=== PATIENT | male | born 1965 | race Caucasian/White ===

== ENCOUNTER 2019-05-14 06:53 | Inpatient (IN) ==
--- NOTE | 2019-05-14 07:18 | ERNOTE ---
<Glenda Salinas - Last Filed: 05/14/19 08:00> Abdominal HPI - Narrative Date of Service: 05/14/19 - General Chief Complaint: Abdominal Pain Time Seen by Provider: 05/14/19 07:27 Source: patient Exam Limitations: no limitations - Immun/Allergies/Home Medications Immunizatons: IMMUNIZATION HX Immunizations Up to Date Yes History of Influenza Vaccine No Hx Pneumococcal Vaccination No Allergies/Adverse Reactions: Allergies indomethacin Allergy (Severe, Verified 05/14/19 07:00) seasonal Allergy (Uncoded 05/14/19 07:00) Home Medications: HOME MEDICATIONS naproxen sodium 220 mg tablet 220 mg PO DAILY PRN tab 04/16/18 [Last Taken Unknown] triamcinolone acetonide 0.1 % topical cream 1 applic TP BID #80 g 10/20/18 [Last Taken Unknown] cyclobenzaprine 10 mg tablet 10 mg PO TID #90 tab 03/30/19 [Last Taken Unknown] hydrocodone 10 mg-acetaminophen 325 mg tablet 1 tab PO Q6H PRN #90 tab 03/30/19 [Last Taken Unknown] lansoprazole 30 mg capsule,delayed release 30 mg PO BID #180 cap 03/30/19 [Last Taken Unknown] tamsulosin 0.4 mg capsule 0.4 mg PO DAILY #90 cap 03/30/19 [Last Taken Unknown] Lisinopril [Zestril] 10 mg PO DAILY 05/14/19 [Last Taken Unknown] - History of Present Illness Narrative: Patient comes emergency room for nausea, vomiting, dry heaves, bright red blood per rectum last night and abdominal pain. He has known peptic ulcer disease, has taken PPI for years. He had colonoscopy less than 2 years ago, states that was normal and was told he could return in 10 years. 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 He states he had large amount of bright red blood. Since then he is vomited 4 times, has not passed any additional blood and has had dry heaves all night. He states he will commonly have dark red or tarry stools if he drinks too much which he believes is from his peptic ulcer disease. He has not had bright red blood in the past. He retains his gallbladder and his appendix. 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 tennis elbow (Chronic) BPH loc w urin obs/LUTS (Chronic) Obstructive sleep apnea (adult) (pediatric) (Chronic) Osteoarthritis (Chronic) Onset Date: Unknown Obstructive sleep apnea (adult) (pediatric) (Chronic) Onset Date: ~04/10/15 Obesity (Chronic) Onset Date: ~10/04/13 GERD (gastroesophageal reflux disease) (Chronic) Onset Date: Unknown Duodenal ulcer disease (Chronic) Onset Date: ~10/05/17 DDD (degenerative disc disease) (Chronic) Onset Date: Unknown Influenza vaccine refused Onset Date: ~04/16/18 Refused influenza vaccine Onset Date: ~03/05/18 Sinusitis, acute Onset Date: ~03/01/12 Surgical History: Surgical History (Last Reviewed 05/14/19 @ 07:30 by Glenda Salinas MD) H/O esophagogastroduodenoscopy Onset Date: ~07/10/17 07/10/2017-EGD with balloon dilation of esophagus, hiatal hernia Dr Rocio PÉREZ History of colonoscopy Dr. Jessica - also had external hemorrhoids 07/10/2017- Dr Rocio PÉREZ colonoscopy with hot biopsy of polyps sigmoid and rectum Dr. Puentes- [facility] on 07/2017 Family History: Family History (Last Reviewed 05/14/19 @ 07:30 by Glenda Salinas MD) Mother Lung cancer Father Brain cancer Brother lymph node issues Social History: (Last Reviewed 05/14/19 @ 07:30 by Glenda Salinas MD) Social History: Marital status: household members: spouse Service: No Tobacco: Smoking Status: Former smoker Alcohol: alcohol intake: current Substance Use: substance use type: does not use Dietary Habits: caffeine: Yes Physical Exam - Physical Exam General Appearance: Present: wd/wn, alert, mild distress Head Exam: Present: normal inspection, no evidence of injury Eye Exam: Normal inspection: bilateral, PERRL: bilateral, EOMI: bilateral Ears, Nose, Throat: Present: normal ENT inspection Neck: Present: normal inspection, nontender Respiratory: Present: no respiratory distress, normal breath sounds Cardiovascular/Chest: Present: regular rate, rhythm Gastrointestinal/Abdominal: Present: other - Abdomen is soft, slightly distended with the patient states is typically the case. Bowel sounds are present. He reports pain in the epigastrium which is worse with palpation. There is also pain present in the right upper quadrant. There is no rebound guarding or signs of peritonitis. Progress - Vital Signs Patient's Vital Signs:: I have reviewed the patient's vital signs. Vital Signs: Vital Signs 05/14/19 06:54 Temperature 36.5 C Pulse Rate 75 Respiratory Rate 16 Blood Pressure 125/82 O2 Sat by Pulse Oximetry 97 - Progress/Reassessment Chief Complaint: Abdominal Pain Progress Note-Subjective: 05/14/19 07:34 IV fluids and Zofran have been ordered, patient's case is discussed with oncoming physician at 8 AM. Labs, CT scan pending. Patient stable. - Transfer of Care Physician Sign Out: Glenda Salinas Receiving Physician: David Parra Pending Results: CT/MRI results, Labs Expected Disposition: Discharge Departure Clinical Impression: Abdominal pain, Vomiting, Blood in stool, Fever, Abnormal CT of the abdomen - Departure Disposition: Still a patient Condition: Fair Referrals: Bryce Montes MD [Primary Care Provider] - <David Parra - Last Filed: 05/14/19 10:25> Abdominal HPI - Immun/Allergies/Home Medications Immunizatons: IMMUNIZATION HX Immunizations Up to Date Yes History of Influenza Vaccine No Hx Pneumococcal Vaccination No Medical History (Last Reviewed 05/14/19 @ 07:30 by Glenda Salinas MD) Folliculitis (Acute) Just to right of center in the beltline in front 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 Left tennis elbow (Chronic) BPH loc w urin obs/LUTS (Chronic) Obstructive sleep apnea (adult) (pediatric) (Chronic) Osteoarthritis (Chronic) Onset Date: Unknown Obstructive sleep apnea (adult) (pediatric) (Chronic) Onset Date: ~04/10/15 Obesity (Chronic) Onset Date: ~10/04/13 GERD (gastroesophageal reflux disease) (Chronic) Onset Date: Unknown Duodenal ulcer disease (Chronic) Onset Date: ~10/05/17 DDD (degenerative disc disease) (Chronic) Onset Date: Unknown Influenza vaccine refused Onset Date: ~04/16/18 Refused influenza vaccine Onset Date: ~03/05/18 Sinusitis, acute Onset Date: ~03/01/12 Surgical History: Surgical History (Last Reviewed 05/14/19 @ 07:30 by Glenda Salinas MD) H/O esophagogastroduodenoscopy Onset Date: ~07/10/17 07/10/2017-EGD with balloon dilation of esophagus, hiatal hernia Dr Rocio PÉREZ History of colonoscopy Dr. Jessica - also had external hemorrhoids 07/10/2017- Dr Rocio PÉREZ colonoscopy with hot biopsy of polyps sigmoid and rectum Dr. Puentes- [facility] on 07/2017 Family History: Family History (Last Reviewed 05/14/19 @ 07:30 by Glenda Salinas MD) Mother Lung cancer Father Brain cancer Brother lymph node issues Social History: (Last Reviewed 05/14/19 @ 07:30 by Glenda Salinas MD) Social History: Marital status: household members: spouse Service: No Tobacco: Smoking Status: Former smoker Alcohol: alcohol intake: current Substance Use: substance use type: does not use Dietary Habits: caffeine: Yes Progress - Results and Orders Patient's Lab Results:: I have reviewed the patient's lab results. - Vital Signs Patient's Vital Signs:: I have reviewed the patient's vital signs. Vital Signs: Vital Signs 05/14/19 06:54 05/14/19 07:31 05/14/19 08:16 Temperature 36.5 C Pulse Rate 75 96 91 Respiratory Rate 16 17 27 H Blood Pressure 125/82 107/60 126/72 O2 Sat by Pulse Oximetry 97 96 92 L 05/14/19 09:17 Temperature 38.7 C H Pulse Rate 91 Respiratory Rate 23 H Blood Pressure 119/63 O2 Sat by Pulse Oximetry 90 L - CT/Ultrasound CT/Ultrasound Narrative: I reviewed official radiology report for CT scan abd/pelvis ordered by Dr Salinas - Progress/Reassessment Progress Note-Subjective: 05/14/19 10:23 Patient taken over at am shift change. IV tylenol given. Reviewed CT and discussed results with patient. D/W Dr Boo who saw the patient in the ED. D/W Dr Hernandez who will admit and requested IV Zosyn (given in ED). Patient understands and is agreeable to admission. Please see Dr Salinas note for full H&P.
[2019-05-14] MEDS ORDERED: ONDANSETRON HCL/PF 2 MG/ML VIAL IV ONE ×2 (07:23→08:48)
[2019-05-14] MEDS ORDERED: NORMAL SALINE 1,000 ML IV ONE ×2 (07:25→09:00)
[2019-05-14] MEDS ORDERED: DIATRIZOATE MEGLUMINE, SODIUM 30 ML BTL PO ONE (07:26)
[2019-05-14] MEDS ORDERED: MORPHINE SULFATE 4 MG/ML SYRG IV ONE (07:36)
[2019-05-14] MEDS ORDERED: MORPHINE SULFATE 2 MG/ML DISP.SYRIN ONE (07:37)
[2019-05-14 07:39] LABS: Hematocrit 46.4 % (42.0-52.0); Hemoglobin 16.4 gm/dL (13.5-18.0); Mean Cell Volume 90.8 fl (78-100); Mean Corpuscular Hemoglobin 32.1 pg (27-31); Mean Corpuscular Hgb Conc 35.3 g/dl (32-36); Mean Platelet Volume 9.9 fl (8-11.3); Neutrophil # 6.9 K/mm3 (1.3-6.0); Neutrophil % 90.6 % (42-75.0); Platelet Count 185 K/mm3 (150-450); Red Blood Count 5.11 M/mm3 (4.7-6.0); Red Cell Distribution Width 12.6 % (11.5-14.0); White Blood Count 7.6 K/mm3 (4.0-10.5)
[2019-05-14 07:51] LABS: Albumin * 3.8 gm/dl (3.4-5.0); Anion Gap 13.5 mmol/L (6.8-13.8); BUN/Creatinine Ratio 18.3 (9.0-21.6); Bilirubin, Total 1.8 mg/dL (0.0-1.1); Ca. Corrected For Albumin 8.4 mg/dL (8.4-10.2); Calcium * 8.6 mg/dL (7.9-10.9); Carbon Dioxide 23.3 mmol/L (24-32.6); Potassium 3.8 mmol/L (3.4-4.6)
[2019-05-14] MEDS ORDERED: PANTOPRAZOLE SODIUM 40 MG/100 ML PIGGYBACK IV ONE (08:07)
[2019-05-14] MEDS ORDERED: ONDANSETRON HCL/PF 2 MG/ML VIAL ONE (08:49)
[2019-05-14] MEDS ORDERED: ACETAMINOPHEN 1,000 MG/100 ML BTL IV ONE (09:20)
[2019-05-14] MEDS ORDERED: PIPERACILLIN SODIUM/TAZOBACTAM 3.375 GM in DEXTROSE 5 % IN WATER 100 ML IV ONE ×2 (10:04)
[2019-05-14] MEDS ORDERED: TETRACAINE/BENZOCAINE/BUTAMBEN 56 SPRAY BTL TP ONE (10:13)
--- NOTE | 2019-05-14 10:56 | CONS ---
HPI - General Date of Service: 05/14/19 Narrative: Yesterday afternoon the patient passed a large amount of blood with a bowel movement. He then started having pernicious nausea and bilious vomiting and presented to the emergency room. He is hemodynamically stable. His white blood cell count, platelet count and hemoglobin are normal. CT scan of the abdomen and pelvis reveals a very large (chronic) hiatal hernia with dilated proximal small bowel. There is a transition zone however there is air and stool in the colon. I was asked to see the patient Source: patient, family, RN/MD, RN notes reviewed, old records Exam Limitations: no limitations - History of Present Illness Timing/Duration: other - Started yesterday Modifying Factors - (Worsens): Reports: eating Modifying Factors - (Improves): Reports: rest Associated Symptoms: nausea, vomiting, shortness of breath, other - Single episode rectal bleeding Allergies/Adverse Reactions: Allergies indomethacin Allergy (Severe, Verified 05/14/19 07:00) seasonal Allergy (Uncoded 05/14/19 07:00) Home Medications: Home Medications Medication Instructions Recorded Last Taken naproxen sodium 220 mg tablet 220 mg PO DAILY PRN tab 04/16/18 Unknown hydrocodone 10 mg-acetaminophen 1 tab PO Q6H PRN #90 tab 03/30/19 Unknown 325 mg tablet lansoprazole 30 mg capsule,delayed 30 mg PO BID #180 cap 03/30/19 05/13/19 release tamsulosin 0.4 mg capsule 0.4 mg PO DAILY #90 cap 03/30/19 05/13/19 Cyclobenzaprine HCl 10 mg PO TID PRN 05/14/19 05/13/19 Lisinopril [Zestril] 10 mg PO DAILY 05/14/19 05/13/19 Triamcinolone Acetonide [Kenalog 1 applic TOPICAL BID PRN 05/14/19 Unknown 0.1% Cream] Procedures Application of splint (07/31/06) CYSTOSCOPY NEC (12/12/09) Injection of anesthetic into spinal canal for analgesia (01/23/03) Injection of other agent into spinal canal (01/23/03) Injection of steroid (01/23/03) Review of Systems - Review of Systems Generalized/Overall Review: Present: Fever. Absent: Chills EENTM: Present: No Symptoms Reported Respiratory: Present: Other - He uses CPAP at night due to obstructive sleep apnea. He has dyspnea with exertion Cardiac: Absent: Chest Pain, Palpitations Abdominal: Present: Nausea, Vomiting, Bright blood from rectum - He has abdominal distention but not much in the way of discomfort, Other Genitourinary: Present: No Symptoms Reported Musculoskeletal: Present: No Symptoms Reported Neurological: Present: No Symptoms Reported Skin: Present: No Symptoms Reported Physical Examination - Exam Vital Signs: Vital Signs - Last Taken Temp 38.7 C H 05/14/19 09:17 Pulse 88 05/14/19 10:24 Resp 12 05/14/19 10:24 BP 97/46 05/14/19 10:24 Pulse Ox 92 L 05/14/19 10:24 O2 Oxygen Delivery Method Room Air Constitutional: Present: Alert, Oriented x3, Cooperative, Well developed, Mild distress, Overweight ENT Exam: Present: normal ENT inspection - Slightly plethoric Eye Exam: bilateral eye: normal inspection Neck: Present: full range of motion, normal inspection Respiratory: Present: no respiratory distress Cardiovascular/Chest: Present: regular rate, rhythm, no edema Abdomen: Present: other - Very distended and tympanitic. No percussion tenderness. No discrete point tenderness to direct palpation and no rebound or guarding. No hernias Extremity: Present: normal range of motion, no pedal edema Skin Exam: Present: normal color, other - Slightly flushed Neurologic: Present: planner II-XII nml as tested, no motor/sensory deficits Appearance: Present: appropriate appearance, no memory impairment Eye contact: Present: cooperative, good eye contact, normal speech Thoughts: Present: normal thought pattern - Results and Findings: Lab/Microbiology results last 24 hrs: Abnormal/Pending Laboratory Last 24 HRS 05/14/19 05/14/19 05/14/19 07:34 07:34 07:34 MCH 32.1 H Neutrophils % 90.6 H Lymphocytes % 4.2 L Neutrophils # 6.9 H Lymphocytes # 0.32 L Carbon Dioxide 23.3 L Random Glucose 126 H Total Bilirubin 1.8 H C-Reactive Prot, Quant 6.2 H - Assessments/Findings (1) Abnormal CT of the abdomen Diagnosis(s): There is a transition zone on the CT however the obstruction or ileus does not appear to be complete. He has never had abdominal surgery His past history was reviewed. He was followed for a long time by Dr. Jessica in [place] for acid peptic disease. He has had multiple EGDs and colon exams. He has had polyps in the past (apparently hyperplastic) because he was advised 10-year follow-up. His last upper and lower endoscopy was in April 2017. The upper endoscopy was normal with exception of a large hiatal hernia, and the GE junction was dilated. There was a "question of proctitis" which was biopsied and he had a very small polyp which apparently was hyperplastic because he was advised to 10-year follow-up. All of these records are available in [place] He does give a history of chronic severe heartburn. His states he will pass black stools on occasion. He also moves his bowels very infrequently and may go up to a week without a bowel movement. He describes a diet which is extremely low in fiber. RECOMMENDATION: A nasogastric tube will allow decompression of the abdomen, and the CT contrast should help open up the bowel. The tube will also allow to see if there is bright red blood in the stomach. The distal stomach and duodenum appear grossly normal on CT with no thickening there. He does have a large hiatal hernia. Decompression should also improve his SaO2 by allowing the diaphragm to move better. Unfortunately nasogastric tube will not allow the CPAP to fit well so he will most likely need nasal O2 at night. There is gas and stool in the colon and he has had a colonoscopy recently enough to exclude a colonic malignancy. He has had rectal irritation previously and the bleeding may be related to that as he has had a loose yellow bowel movement without blood since the initial bleeding. Will continue to follow the patient. Problem: Acute (2) Blood in stool Problem: Acute (3) Vomiting Problem: Acute
[2019-05-14 11:35] LABS: Urine Appearance Clear (CLEAR); Urine Bilirubin Negative (NEGATIVE); Urine Blood Negative /ul (NEGATIVE); Urine Color Dark Yellow; Urine Ketone Negative (NEGATIVE); Urine Nitrite Negative (NEGATIVE); Urine Protein Negative (NEGATIVE); Urine RBC None Seen /hpf (0-5); Urine Urobilinogen Normal (NORMAL); Urine WBC 0-5 /hpf (0-5)
[2019-05-14 11:36] LABS: Urine Bacteria None Seen
--- NOTE | 2019-05-14 11:45 | HP ---
Chief Complaint - Chief Complaint Date of Service: 05/14/19 Time of Service: 11:22 Chief Complaint: Abdominal pain/nausea, vomiting and bright red blood per rectum History of Present Illness: Byrce Arroyo is a 54-year-old white male with past medical history of hypertension, obstructive sleep apnea, gastroesophageal reflux disease, history of peptic ulcer disease in the past, who was admitted on 05/14/2019 with a chief complaint of abdominal pain associated with nausea vomiting and bright red blood. 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 On the way he experienced abdominal pain, diffuse, /. When he was in the bathroom he had a large amount of bright red blood. When he got home he started having nausea and vomiting. He had bilious emesis and then most of them were dry heaves. His last EGD/colonoscopy was 2 years ago. His EGD was unremarkable except for large hiatal hernia. He was told he had a polyp and presumably is a hyperplastic polyp as he was told that he did not need another one until 10 years. He does take Prevacid 1 to 2 tablets a day for the last 20 to 25 years because of his history of peptic ulcer disease. He does get dark stools at times when he drinks. He does take Aleve on a as needed basis as well for joint pains. . He felt like he had the fever but when his checked it it was normal. In the emergency room though his temperature was 38.6. His white blood cell count was normal with a left shift-98.6% neutrophil. His BUN/creatinine was 22/1.20 with a ratio of 18.3. His LFTs were within normal limits except for a total bilirubin of 1.8. His CTS of the abdomen and pelvis showed bowel obstruction versus ileus of the proximal and mid small bowel. Distal small bowel was collapsed. Fatty infiltration of the liver. Surgery consult was done and he recommended placement of NG tube and admission for further evaluation and treatment. 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 Left tennis elbow (Chronic) BPH loc w urin obs/LUTS (Chronic) Obstructive sleep apnea (adult) (pediatric) (Chronic) Osteoarthritis (Chronic) Onset Date: Unknown Obstructive sleep apnea (adult) (pediatric) (Chronic) Onset Date: ~04/10/15 Obesity (Chronic) Onset Date: ~10/04/13 GERD (gastroesophageal reflux disease) (Chronic) Onset Date: Unknown Duodenal ulcer disease (Chronic) Onset Date: ~10/05/17 DDD (degenerative disc disease) (Chronic) Onset Date: Unknown Influenza vaccine refused Onset Date: ~04/16/18 Refused influenza vaccine Onset Date: ~03/05/18 Sinusitis, acute Onset Date: ~03/01/12 Surgical History: Surgical History (Last Reviewed 05/14/19 @ 11:15 by Oxana Benoit, SILVIA) H/O esophagogastroduodenoscopy Onset Date: ~07/10/17 07/10/2017-EGD with balloon dilation of esophagus, hiatal hernia Dr Rocio HAUSER History of colonoscopy Dr. Jessica - also had external hemorrhoids 07/10/2017- Dr Rocio PÉREZ colonoscopy with hot biopsy of polyps sigmoid and rectum Dr. Puentes- [facility] on 07/2017 Family History: Family History (Last Reviewed 05/14/19 @ 11:15 by Oxana Benoit, SILVIA) Mother Lung cancer Father Brain cancer Brother lymph node issues Social History: (Last Reviewed 05/14/19 @ 11:15 by Oxana Benoit, SILVIA) Social History: Marital status: household members: spouse Service: No Tobacco: Smoking Status: Former smoker Alcohol: alcohol intake: current Substance Use: substance use type: does not use Dietary Habits: caffeine: Yes Review Of Systems (GEN) - Review of Systems Generalized/Overall Review: Absent: Weakness, Chills, Fever EENTM: Absent: Blurred Vision Respiratory: Absent: Cough, Shortness of Breath, Orthopnea Cardiac: Absent: Chest Pain, Edema, Palpitations Abdominal: Present: Nausea, Vomiting, Abdominal Pain, Bright blood from rectum Genitourinary: Absent: Urgency, Frequency Musculoskeletal: Present: Joint Pain Neurological: Absent: Headache Skin: Absent: Lesions, Rash Misc: All systems neg except as marked Immunizations: IMMUNIZATION HX Immunizations Up to Date Yes History of Influenza Vaccine No Hx Pneumococcal Vaccination No Allergies/Adverse Reactions: Allergies Allergy/AdvReac Type Severity Reaction Status Date / Time indomethacin Allergy Severe Verified 05/14/19 07:00 seasonal Allergy Uncoded 05/14/19 07:00 Home Medications: HOME MEDICATIONS naproxen sodium 220 mg tablet 220 mg PO DAILY PRN tab 04/16/18 [Last Taken Unknown] hydrocodone 10 mg-acetaminophen 325 mg tablet 1 tab PO Q6H PRN #90 tab 03/30/19 [Last Taken Unknown] lansoprazole 30 mg capsule,delayed release 30 mg PO BID #180 cap 03/30/19 [Last Taken 05/13/19] tamsulosin 0.4 mg capsule 0.4 mg PO DAILY #90 cap 03/30/19 [Last Taken 05/13/19] Cyclobenzaprine HCl 10 mg PO TID PRN 05/14/19 [Last Taken 05/13/19] Lisinopril [Zestril] 10 mg PO DAILY 05/14/19 [Last Taken 05/13/19] Triamcinolone Acetonide [Kenalog 0.1% Cream] 1 applic TOPICAL BID PRN 05/14/19 [Last Taken Unknown] Exam - Exam Vital Signs: Vital Signs - Last Taken Temp 38.7 C H 05/14/19 09:17 Pulse 88 05/14/19 10:24 Resp 12 05/14/19 10:24 BP 97/46 05/14/19 10:24 Pulse Ox 92 L 05/14/19 10:24 Constitutional: Present: Alert, Oriented x3, Cooperative, Morbidly obese ENT Exam: Present: hearing grossly normal Eye Exam: bilateral eye: normal inspection, PERRL, EOMI Neck: Present: supple. Absent: lymphadenopathy (R), lymphadenopathy (L) Respiratory: Present: lungs clear, decreased breath sounds, No rales, No wheezing Cardiovascular/Chest: Present: regular rate, rhythm, no JVD, no murmur Abdomen: Present: tender, firm, other - tympanitic, distended, hypoactive Extremity: Present: no calf tenderness, pedal edema Diagnostic Studies: Abnormal Lab Results 05/14/19 05/14/19 05/14/19 Range/Units 07:34 07:34 07:34 MCH 32.1 H (27-31) pg Neutrophils % 90.6 H (42-75.0) % Lymphocytes % 4.2 L (20-51) % Neutrophils # 6.9 H (1.3-6.0) K/mm3 Lymphocytes # 0.32 L (1.5-3.5) k/mm3 Carbon Dioxide 23.3 L (24-32.6) mmol/L Random Glucose 126 H (70-110) mg/dL Total Bilirubin 1.8 H (0.0-1.1) mg/dL C-Reactive Prot, Quant 6.2 H (0.0-0.9) mg/dL Laboratory Results WBC 7.6 K/mm3 (4.0-10.5) 05/14/19 07:34 RBC 5.11 M/mm3 (4.7-6.0) 05/14/19 07:34 Hgb 16.4 gm/dL (13.5-18.0) 05/14/19 07:34 Hct 46.4 % (42.0-52.0) 05/14/19 07:34 MCV 90.8 fl (78-100) 05/14/19 07:34 MCH 32.1 pg (27-31) H 05/14/19 07:34 MCHC 35.3 g/dl (32-36) 05/14/19 07:34 RDW 12.6 % (11.5-14.0) 05/14/19 07:34 Plt Count 185 K/mm3 (150-450) 05/14/19 07:34 MPV 9.9 fl (8-11.3) 05/14/19 07:34 Immature Gran % (Auto) 0.40 % (0.001-0.429) 05/14/19 07:34 Immature Gran # (Auto) 0.03 K/mm3 (0.000-0.0310) 05/14/19 07:34 Neutrophils % 90.6 % (42-75.0) H 05/14/19 07:34 Lymphocytes % 4.2 % (20-51) L 05/14/19 07:34 Monocytes % 4.7 % (0.0-9) 05/14/19 07:34 Eosinophils % 0.0 % (0.0-3.0) 05/14/19 07:34 Basophils % 0.1 % (0.0-1.0) 05/14/19 07:34 Nucleated RBC % 0.0 k/mm3 (0-1) 05/14/19 07:34 Neutrophils # 6.9 K/mm3 (1.3-6.0) H 05/14/19 07:34 Lymphocytes # 0.32 k/mm3 (1.5-3.5) L 05/14/19 07:34 Monocytes # 0.4 k/mm3 (0.0-1.0) 05/14/19 07:34 Eosinophils # 0.0 k/mm3 (0.0-0.7) 05/14/19 07:34 Absolute Basophils 0.0 k/mm3 (0.0-0.1) 05/14/19 07:34 ESR 4 mm/hr (0-10) 05/14/19 08:00 Sodium 136 mmol/L (132-142) 05/14/19 07:34 Plasma Sodium 136 mmol/L (130-142) 05/14/19 07:34 Potassium 3.8 mmol/L (3.4-4.6) 05/14/19 07:34 Chloride 103 mmol/L (97-106) 05/14/19 07:34 Carbon Dioxide 23.3 mmol/L (24-32.6) L 05/14/19 07:34 Anion Gap 13.5 mmol/L (6.8-13.8) 05/14/19 07:34 BUN 22 mg/dL (6-23) 05/14/19 07:34 Creatinine 1.20 mg/dL (0.4-1.4) 05/14/19 07:34 Est GFR (Non-Af Amer) 67 mL/min (60-130) D 05/14/19 07:34 BUN/Creatinine Ratio 18.3 (9.0-21.6) 05/14/19 07:34 Random Glucose 126 mg/dL (70-110) H 05/14/19 07:34 Calcium 8.6 mg/dL (7.9-10.9) 05/14/19 07:34 Calcium Adj for Albumin 8.4 mg/dL (8.4-10.2) 05/14/19 07:34 Total Bilirubin 1.8 mg/dL (0.0-1.1) H 05/14/19 07:34 AST 19 U/L (0-48) 05/14/19 07:34 ALT 54 U/L (19-67) 05/14/19 07:34 Alkaline Phosphatase 52 U/L (50-170) 05/14/19 07:34 C-Reactive Prot, Quant 6.2 mg/dL (0.0-0.9) H 05/14/19 07:34 Total Protein 7.0 gm/dL (6.2-8.2) 05/14/19 07:34 Albumin 3.8 gm/dl (3.4-5.0) 05/14/19 07:34 Amylase 38 U/L (25-115) 05/14/19 07:34 Lipase 108 U/L (73-393) 05/14/19 07:34 Assessment/Plan - Narrative Narrative: Bryce is a 54-year-old white male who was admitted for abdominal pain/nausea/vomiting and bright red blood per rectum. We will keep patient n.p.o., continue with NGT with suction, and IV fluids. His bright red blood per rectum likely is lower GI bleed -Last colonoscopy - question of proctitis. It is unlikely upper GI bleed but with his history of peptic ulcer disease we will continue with IV Protonix. We will monitor his hemoglobin/ hematocrit. He has bowel obstruction versus ileus on CT scan etiology is uncertain. - Assessment/Plan (1) SBO (small bowel obstruction) Assessment: PSBO vs Ileus Problem: Acute (2) Abdominal pain Problem: Acute (3) Vomiting Problem: Acute (4) Fever Problem: Acute (5) GERD (gastroesophageal reflux disease) Problem: Chronic Qualifiers: Esophagitis presence: esophagitis presence not specified Qualified Code(s): K21.9 - Gastro-esophageal reflux disease without esophagitis (6) Hypertension Problem: Chronic Qualifiers: Hypertension type: essential hypertension Qualified Code(s): I10 - Essential (primary) hypertension (7) Obesity Problem: Chronic (8) Fatty liver Problem: Acute
[2019-05-14] MEDS ORDERED: ACETAMINOPHEN 650 MG SUPP.RECT RC PRN (11:56)
[2019-05-14] MEDS: PANTOPRAZOLE SODIUM 40 MG in NORMAL SALINE 100 ML IV SCH (13:07)
[2019-05-14] MEDS: DEXTROSE 5%-0.5 NORMAL SALINE 1,000 ML IV PRN ×2 (13:54→21:54)
[2019-05-14] MEDS: MORPHINE SULFATE 10 MG/ML SYRG IV PRN ×2 (13:54→20:31)
[2019-05-14] MEDS: ONDANSETRON HCL/PF 2 MG/ML VIAL IV PRN ×2 (14:05→20:36)
--- NOTE | 2019-05-14 17:32 | PN ---
Subjective - Date and Time Seen Date: 05/14/19 Time: 17:27 Subjective Narrative: He was admitted for partial small bowel obstruction and nasogastric tube was passed. There was 1000 mL of green drainage immediately. 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 He has had an episode of mid upper abdominal discomfort for which he received medication. He has not passed gas or moved his bowels Objective Objective Narrative: He has had an elevated temperature he has a wash rag on his forehead. He feels a little flushed. He does not appear in distress. He denies abdominal pain currently. He feels his belly is somewhat less distended - Review of Systems Generalized/Overall Review: Denies: Chills EENTM: Reports: No Symptoms Reported Respiratory: Denies: Cough Cardiac: Denies: Chest Pain, Palpitations Abdominal: Reports: Other - He states his abdomen is smaller Genitourinary Symptoms: Reports: No Symptoms Reported Musculoskeletal Complaints: Reports: No Symptoms Reported Neurological: Reports: No Symptoms Reported Skin: Reports: No Symptoms Reported - Vitals Vitals: Last Vital Signs Temp 37.1 C 05/14/19 16:27 Pulse 77 05/14/19 15:11 Resp 14 05/14/19 15:11 BP 116/61 05/14/19 15:11 Pulse Ox 96 05/14/19 15:11 - Abnormal Lab Findings Abnormal Lab Findings: Abnormal Lab Results 05/14/19 05/14/19 05/14/19 Range/Units 07:34 07:34 07:34 MCH 32.1 H (27-31) pg Neutrophils % 90.6 H (42-75.0) % Lymphocytes % 4.2 L (20-51) % Neutrophils # 6.9 H (1.3-6.0) K/mm3 Lymphocytes # 0.32 L (1.5-3.5) k/mm3 Carbon Dioxide 23.3 L (24-32.6) mmol/L Random Glucose 126 H (70-110) mg/dL Total Bilirubin 1.8 H (0.0-1.1) mg/dL C-Reactive Prot, Quant 6.2 H (0.0-0.9) mg/dL - Exam Constitutional: Present: Alert, Oriented x3, Cooperative, Well developed, Well nourished, Mild distress ENT Exam: Present: normal ENT inspection Neck: Present: normal inspection Respiratory: Present: no respiratory distress Cardiovascular/Chest: Present: regular rate, rhythm Abdomen: Present: other - His abdomen is less distended although he is still tympanitic, but soft. There is no percussion or direct tenderness. No guarding or rebound. 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 We will continue NG suction and reevaluate with serial exams (2) Blood in stool Problem: Acute Narrative: No further rectal bleeding (3) Vomiting Problem: Acute Narrative: Large amount of initial NG output but no further nausea
[2019-05-14 19:12] LABS: Hematocrit 41.7 % (42.0-52.0); Hemoglobin 14.5 gm/dL (13.5-18.0)
[2019-05-15] MEDS: MORPHINE SULFATE 10 MG/ML SYRG IV PRN ×2 (02:46→08:47)
[2019-05-15] MEDS: DEXTROSE 5%-0.5 NORMAL SALINE 1,000 ML IV PRN (06:12)
[2019-05-15 06:16] LABS: Hematocrit 42.1 % (42.0-52.0); Hemoglobin 14.6 gm/dL (13.5-18.0); Mean Cell Volume 93.1 fl (78-100); Mean Corpuscular Hemoglobin 32.3 pg (27-31); Mean Corpuscular Hgb Conc 34.7 g/dl (32-36); Mean Platelet Volume 9.8 fl (8-11.3); Neutrophil # 2.7 K/mm3 (1.3-6.0); Neutrophil % 62.9 % (42-75.0); Platelet Count 148 K/mm3 (150-450); Red Blood Count 4.52 M/mm3 (4.7-6.0); White Blood Count 4.4 K/mm3 (4.0-10.5)
[2019-05-15 06:25] LABS: BUN/Creatinine Ratio 11.5 (9.0-21.6); Calcium * 7.7 mg/dL (7.9-10.9); Carbon Dioxide 24.7 mmol/L (24-32.6); Estimated Creat Clear 88.2; Potassium 3.7 mmol/L (3.4-4.6)
[2019-05-15] MEDS: ONDANSETRON HCL/PF 2 MG/ML VIAL IV PRN (08:47)
--- NOTE | 2019-05-15 09:11 | PN ---
Subjective - Date and Time Seen Date: 05/15/19 Time: 09:04 Subjective Narrative: Patient had 2 loose BM. Had 900 ml yesterday and has had 200 ml thru NGT so far today. afebrile. Objective - Review of Systems Generalized/Overall Review: Denies: Weakness, Chills, Fever EENTM: Denies: Blurred Vision Respiratory: Denies: Cough, Shortness of Breath, Orthopnea Cardiac: Denies: Chest Pain, Edema, Palpitations Abdominal: Reports: Nausea. Denies: Vomiting, Abdominal Pain, Bright blood from rectum Genitourinary Symptoms: Denies: Urgency, Frequency Musculoskeletal Complaints: Denies: Joint Pain Neurological: Denies: Headache Skin: Denies: Lesions, Rash Misc: All systems neg except as marked - Vitals Vitals: Last Vital Signs Temp 36.8 C 05/15/19 02:53 Pulse 79 05/15/19 06:00 Resp 18 05/15/19 06:00 BP 122/78 05/15/19 06:00 Pulse Ox 96 05/15/19 06:00 - Abnormal Lab Findings Abnormal Lab Findings: Abnormal Lab Results 05/14/19 05/14/19 05/15/19 Range/Units 07:34 19:00 06:10 RBC 4.52 L (4.7-6.0) M/mm3 Hct 41.7 L (42.0-52.0) % MCH 32.3 H (27-31) pg Plt Count 148 L (150-450) K/mm3 Immature Gran % (Auto) 0.50 H (0.001-0.429) % Monocytes % 9.6 H (0.0-9) % Lymphocytes # 1.12 L (1.5-3.5) k/mm3 Random Glucose (70-110) mg/dL Calcium (7.9-10.9) mg/dL C-Reactive Prot, Quant 6.2 H (0.0-0.9) mg/dL 05/15/19 Range/Units 06:10 RBC (4.7-6.0) M/mm3 Hct (42.0-52.0) % MCH (27-31) pg Plt Count (150-450) K/mm3 Immature Gran % (Auto) (0.001-0.429) % Monocytes % (0.0-9) % Lymphocytes # (1.5-3.5) k/mm3 Random Glucose 120 H (70-110) mg/dL Calcium 7.7 L (7.9-10.9) mg/dL C-Reactive Prot, Quant (0.0-0.9) mg/dL - Exam Constitutional: Present: Alert, Oriented x3, Cooperative ENT Exam: Present: hearing grossly normal Neck: Present: supple. Absent: lymphadenopathy (R), lymphadenopathy (L) Respiratory: Present: normal breath sounds, No rales, No wheezing Cardiovascular/Chest: Present: regular rate, rhythm, no JVD, no murmur Abdomen: Present: Normal bowel sounds, firm, distended, hypoactive Extremity: Present: no calf tenderness, pedal edema Assessment/Plan Plan Narrative: Bryce was admitted for SBO/Ileus and BRBPR. He has had 2 BM . No BRBPR. Hemoglobin went down from 16 on admission to 14 but has stabilized at that number. His NGT output this morning is 200 ml thois morning. He had his AXR . Results are pending. Continue with NPO and IVF . - Problems/Diagnosis (1) SBO (small bowel obstruction) Problem: Acute (2) Abdominal pain Problem: Acute (3) Vomiting Problem: Resolved (4) Fever Problem: Resolved (5) GERD (gastroesophageal reflux disease) Problem: Chronic Qualifiers: Esophagitis presence: esophagitis presence not specified Qualified Code(s): K21.9 - Gastro-esophageal reflux disease without esophagitis (6) Hypertension Problem: Chronic Qualifiers: Hypertension type: essential hypertension Qualified Code(s): I10 - Essential (primary) hypertension (7) Obesity Problem: Chronic (8) Fatty liver Problem: Acute
[2019-05-15] MEDS ORDERED: BISACODYL 5 MG TABLET.DR PO ONE (10:38)
--- NOTE | 2019-05-15 10:41 | PN ---
Subjective - Date and Time Seen Date: 05/15/19 Time: 10:32 Subjective Narrative: He was admitted for partial small bowel obstruction and nasogastric tube was passed. There was 1000 mL of green drainage immediately. There is been only 200 mL drainage/shift He has had an episode of mid upper abdominal discomfort for which he received medication. He has passed gas and had liquid bowel movement Objective - Review of Systems Generalized/Overall Review: Denies: Chills, Fever EENTM: Reports: No Symptoms Reported, Other - Mild discomfort from the nasogastric tube Respiratory: Reports: Other - He did require nasal O2 last night due to SILVIA. Denies: Cough, Shortness of Breath Cardiac: Denies: Chest Pain, Palpitations Abdominal: Reports: Other - Single episode of abdominal discomfort. Denies: Nausea, Vomiting Genitourinary Symptoms: Reports: No Symptoms Reported Musculoskeletal Complaints: Reports: No Symptoms Reported Skin: Reports: No Symptoms Reported - Vitals Vitals: Last Vital Signs Temp 36.8 C 05/15/19 02:53 Pulse 79 05/15/19 06:00 Resp 18 05/15/19 06:00 BP 122/78 05/15/19 06:00 Pulse Ox 96 05/15/19 06:00 - Abnormal Lab Findings Abnormal Lab Findings: Abnormal Lab Results 05/14/19 05/15/19 05/15/19 Range/Units 19:00 06:10 06:10 RBC 4.52 L (4.7-6.0) M/mm3 Hct 41.7 L (42.0-52.0) % MCH 32.3 H (27-31) pg Plt Count 148 L (150-450) K/mm3 Immature Gran % (Auto) 0.50 H (0.001-0.429) % Monocytes % 9.6 H (0.0-9) % Lymphocytes # 1.12 L (1.5-3.5) k/mm3 Random Glucose 120 H (70-110) mg/dL Calcium 7.7 L (7.9-10.9) mg/dL - EKG/Xray Findings XRAY: abdomen Interpretation: Reviewed by me - All of the contrast is through into the colon. There is no distended small bowel Awaiting formal report - Exam Constitutional: Present: Alert, Oriented x3, Cooperative, Well developed, Well nourished, No distress ENT Exam: Present: normal ENT inspection Neck: Present: normal inspection Respiratory: Present: no respiratory distress Cardiovascular/Chest: Present: regular rate, rhythm Abdomen: Present: other - Less distended, soft. There are bowel sounds. No percussion, direct or rebound tenderness /Rectal: Present: Exam deferred Extremity: Present: normal inspection Skin Exam: Present: other - Slightly flushed Neurologic: Present: fly tier II-XII nml as tested, normal cerebellar test, no motor/sensory deficits Appearance: Present: appropriate appearance, appropriate insight, no memory impairment Eye contact: Present: cooperative, good eye contact, normal speech Thoughts: Present: normal thought pattern Assessment/Plan - Problems/Diagnosis (1) Abnormal CT of the abdomen Problem: Acute Narrative: His white blood cell count has remained normal. His vital signs are normal. His hemoglobin has only decreased slightly compatible with IV hydration. X-ray shows contrast is passed through into the colon with no residual small bowel distention. The cause of the partial obstruction remains unknown. Will administer 1 dose of MiraLAX and a laxative, clamp the tube with a clear liquid trial. If this is tolerated we will remove the tube later today. Handouts on higher fiber diet were reviewed with him and his and given to them. The mechanism of action of Benefiber and MiraLAX were explained. We will reexamine the patient later today regarding NG tube removal. Discussed with Dr Hernandez. (2) Blood in stool Problem: Acute Narrative: Resolved (3) Vomiting Problem: Acute Narrative: Resolved
[2019-05-15] MEDS: POLYETHYLENE GLYCOL 3350 17 GM PACKET PO SCH (11:29)
[2019-05-15] MEDS: PANTOPRAZOLE SODIUM 40 MG in NORMAL SALINE 100 ML IV SCH (11:29)
[2019-05-15] MEDS ORDERED: BISACODYL 5 MG TABLET.DR ONE (11:47)
[2019-05-15] MEDS ORDERED: ACETAMINOPHEN 500 MG TABLET PO PRN (14:27)
--- NOTE | 2019-05-15 14:30 | PN ---
Dictated Progress Note - Date and Time Seen: Date: 05/15/19 Time: 14:28 - Progress Note Narrative: Vital Signs - Last Taken Temp 36.2 C 05/15/19 13:57 Pulse 73 05/15/19 13:57 Resp 20 05/15/19 13:57 BP 119/75 05/15/19 13:57 Pulse Ox 96 05/15/19 13:57 Abnormal/Pending Laboratory Last 24 HRS 05/15/19 05/15/19 05/14/19 06:10 06:10 19:00 RBC 4.52 L Hct 41.7 L MCH 32.3 H Plt Count 148 L Immature Gran % (Auto) 0.50 H Monocytes % 9.6 H Lymphocytes # 1.12 L Random Glucose 120 H Calcium 7.7 L Culture 05/14/19 09:34 Blood Culture - Preliminary Blood NO GROWTH 24 HOURS 05/14/19 09:20 Blood Culture - Preliminary Blood NO GROWTH 24 HOURS He has tolerated NG tube clamping. He has had another bowel movement and passed gas. He tolerated clear liquids. His abdomen is soft and nontender. He still feels "poorly" and has a bit of a headache. Will discontinue nasogastric tube. P.o. Tylenol.
[2019-05-15] MEDS ORDERED: MAG HYDROX/ALUMINUM HYD/SIMETH 30 ML UDC PO PRN (18:51)
[2019-05-16 07:37] LABS: Hematocrit 41.9 % (42.0-52.0); Hemoglobin 14.8 gm/dL (13.5-18.0); Mean Cell Volume 91.7 fl (78-100); Mean Corpuscular Hemoglobin 32.4 pg (27-31); Mean Corpuscular Hgb Conc 35.3 g/dl (32-36); Mean Platelet Volume 10.1 fl (8-11.3); Neutrophil # 2.2 K/mm3 (1.3-6.0); Neutrophil % 57.2 % (42-75.0); Platelet Count 178 K/mm3 (150-450); Red Blood Count 4.57 M/mm3 (4.7-6.0); Red Cell Distribution Width 12.6 % (11.5-14.0); White Blood Count 3.8 K/mm3 (4.0-10.5)
[2019-05-16 07:42] LABS: Anion Gap 12.2 mmol/L (6.8-13.8); Calcium * 8.5 mg/dL (7.9-10.9); Carbon Dioxide 27.6 mmol/L (24-32.6); Estimated Creat Clear 91.7; Potassium 3.8 mmol/L (3.4-4.6)
[2019-05-16] MEDS ORDERED: SIMETHICONE 80 MG TAB.CHEW PO PRN (08:54)
--- NOTE | 2019-05-16 09:09 | PN ---
Subjective - Date and Time Seen Date: 05/16/19 Time: 08:55 Subjective Narrative: Patient complained of indigestion last night. This morning noticed he was more distended. positive loose BM. no/N/V. Objective - Review of Systems Generalized/Overall Review: Denies: Weakness, Chills, Fever EENTM: Denies: Blurred Vision Respiratory: Denies: Cough, Shortness of Breath, Orthopnea Cardiac: Denies: Chest Pain, Edema, Palpitations Abdominal: Reports: Other - indigextion. Denies: Nausea, Vomiting, Abdominal Pain Musculoskeletal Complaints: Denies: Joint Pain Neurological: Denies: Headache Skin: Denies: Lesions, Rash Misc: All systems neg except as marked - Vitals Vitals: Last Vital Signs Temp 36.5 C 05/16/19 06:38 Pulse 56 L 05/16/19 06:38 Resp 18 05/16/19 06:38 BP 115/81 05/16/19 06:38 Pulse Ox 100 05/16/19 06:38 - Abnormal Lab Findings Abnormal Lab Findings: Abnormal Lab Results 05/16/19 05/16/19 Range/Units 07:15 07:15 WBC 3.8 L (4.0-10.5) K/mm3 RBC 4.57 L (4.7-6.0) M/mm3 Hct 41.9 L (42.0-52.0) % MCH 32.4 H (27-31) pg Immature Gran % (Auto) 0.80 H (0.001-0.429) % Lymphocytes # 1.13 L (1.5-3.5) k/mm3 BUN/Creatinine Ratio 8.0 L (9.0-21.6) - Exam Constitutional: Present: Alert, Oriented x3, Cooperative ENT Exam: Present: hearing grossly normal Neck: Present: supple. Absent: lymphadenopathy (R), lymphadenopathy (L) Respiratory: Present: lungs clear, No rales, No wheezing Cardiovascular/Chest: Present: regular rate, rhythm, no JVD, no murmur Abdomen: Present: Normal bowel sounds, soft, nontender, distended Extremity: Present: no calf tenderness, pedal edema Assessment/Plan Plan Narrative: Bryce was admitted for PSBO, BRBPR. He has been having loose BM. Labs are WNL. Has distension and indigestion. AXR shows no obstruction, positive gas. He sleeps with his mouth open and in the first few days was not able to use his CPAP- could have accumulated gas at that time.Will likely advance to full liquids if OK with Dr. Boo. - Problems/Diagnosis (1) Indigestion Problem: Acute Narrative: with gaseous distension. (2) SBO (small bowel obstruction) Problem: Resolved (3) Abdominal pain Problem: Resolved (4) Vomiting Problem: Resolved (5) Fever Problem: Resolved (6) GERD (gastroesophageal reflux disease) Problem: Chronic Qualifiers: Esophagitis presence: esophagitis presence not specified Qualified Code(s): K21.9 - Gastro-esophageal reflux disease without esophagitis (7) Hypertension Problem: Chronic Qualifiers: Hypertension type: essential hypertension Qualified Code(s): I10 - Essential (primary) hypertension (8) Obesity Problem: Chronic (9) Fatty liver Problem: Acute
[2019-05-16] MEDS: PANTOPRAZOLE SODIUM 40 MG in NORMAL SALINE 100 ML IV SCH (13:18)
[2019-05-16] MEDS: POLYETHYLENE GLYCOL 3350 17 GM PACKET PO SCH (13:18)
--- NOTE | 2019-05-16 14:20 | DS ---
(1) Indigestion Problem: Acute (2) SBO (small bowel obstruction) Problem: Resolved (3) Abdominal pain Problem: Resolved (4) Vomiting Problem: Resolved (5) Fever Problem: Resolved (6) GERD (gastroesophageal reflux disease) Problem: Chronic Qualifiers: Esophagitis presence: esophagitis presence not specified Qualified Code(s): K21.9 - Gastro-esophageal reflux disease without esophagitis (7) Hypertension Problem: Chronic Qualifiers: Hypertension type: essential hypertension Qualified Code(s): I10 - Essential (primary) hypertension (8) Obesity Problem: Chronic (9) Fatty liver Problem: Acute Date of Discharge:: 05/16/19 Hospital Course: Bryce Arroyo is a 54-year-old white male with past medical history of hypertension, obstructive sleep apnea, gastroesophageal reflux disease, history of peptic ulcer disease in the past, who was admitted on 05/14/2019 with a chief complaint of abdominal pain associated with nausea vomiting and bright red blood. 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 On the way he experienced abdominal pain, diffuse, 10/10. When he was in the bathroom he had a large amount of bright red blood. When he got home he started having nausea and vomiting. He had bilious emesis and then most of them were dry heaves. His last EGD/colonoscopy was 2 years ago. His EGD was unremarkable except for large hiatal hernia. He was told he had a polyp and presumably is a hyperplastic polyp as he was told that he did not need another one until 10 years. He does take Prevacid 1 to 2 tablets a day for the last 20 to 25 years because of his history of peptic ulcer disease. He does get dark stools at times when he drinks. He does take Aleve on a as needed basis as well for joint pains. . He felt like he had the fever but when his checked it it was normal. In the emergency room though his temperature was 38.6. His white blood cell count was normal with a left shift-98.6% neutrophil. His BUN/creatinine was 22/1.20 with a ratio of 18.3. His LFTs were within normal limits except for a total bilirubin of 1.8. His CTS of the abdomen and pelvis showed bowel obstruction versus ileus of the proximal and mid small bowel. Distal small bowel was collapsed. Fatty infiltration of the liver. Surgery consult was done and placement of NG tube with gentle suction was done. He was placed on NPO, IVF and got 1 dose of antibiotics. Patient opened up and started having loose BM. He was started on clear liquif=ds and progressed to regular diet. He did have indigestion which was secondary to gas .he is stable to be discharged . Procedures Performed: none Results and Findings: Pending Mircobiology Results 05/14/19 09:34 Blood Blood Culture - Preliminary NO GROWTH AFTER 48 HOURS 05/14/19 09:20 Blood Blood Culture - Preliminary NO GROWTH AFTER 48 HOURS Lab Pending Results 05/14/19 07:34: WBC 7.6, RBC 5.11, Hgb 16.4, Hct 46.4, MCV 90.8, MCH 32.1 H, MCHC 35.3, RDW 12.6, Plt Count 185, MPV 9.9, Immature Gran % (Auto) 0.40, Immature Gran # (Auto) 0.03, Neutrophils % 90.6 H, Lymphocytes % 4.2 L, Monocytes % 4.7, Eosinophils % 0.0, Basophils % 0.1, Nucleated RBC % 0.0, Neutrophils # 6.9 H, Lymphocytes # 0.32 L, Monocytes # 0.4, Eosinophils # 0.0, Absolute Basophils 0.0 05/14/19 07:34: Sodium 136, Plasma Sodium 136, Potassium 3.8, Chloride 103, Carbon Dioxide 23.3 L, Anion Gap 13.5, BUN 22, Creatinine 1.20, Est GFR (Non-Af Amer) 67 D, BUN/Creatinine Ratio 18.3, Random Glucose 126 H, Calcium 8.6, Calcium Adj for Albumin 8.4, Total Bilirubin 1.8 H, AST 19, ALT 54, Alkaline Phosphatase 52, Total Protein 7.0, Albumin 3.8, Amylase 38, Lipase 108 05/14/19 07:34: C-Reactive Prot, Quant 6.2 H 05/14/19 08:00: ESR 4 05/14/19 11:18: Urine Color Dark yellow, Urine Appearance Clear, Urine pH 5.0, Ur Specific [place] 1.020, Urine Protein Negative, Urine Glucose (UA) Negative, Urine Ketones Negative, Urine Blood Negative, Urine Nitrate Negative, Urine Bilirubin Negative, Urine Urobilinogen Normal, Ur Leukocyte Esterase Negative, Urine RBC None seen, Urine WBC 0-5, Ur Epithelial Cells 0-5, Urine Bacteria None seen, Urine Culture Comments No culture indicated 05/14/19 19:00: Hgb 14.5, Hct 41.7 L 05/15/19 06:10: WBC 4.4 D, RBC 4.52 L, Hgb 14.6, Hct 42.1, MCV 93.1, MCH 32.3 H, MCHC 34.7, RDW 13.0, Plt Count 148 L, MPV 9.8, Immature Gran % (Auto) 0.50 H, Immature Gran # (Auto) 0.02, Neutrophils % 62.9, Lymphocytes % 25.7, Monocytes % 9.6 H, Eosinophils % 1.1, Basophils % 0.2, Nucleated RBC % 0.0, Neutrophils # 2.7, Lymphocytes # 1.12 L, Monocytes # 0.4, Eosinophils # 0.1, Absolute Basophils 0.0 05/15/19 06:10: Sodium 139, Plasma Sodium 139, Potassium 3.7, Chloride 105, Carbon Dioxide 24.7, Anion Gap 13.0, BUN 12, Creatinine 1.04, Est GFR (Non-Af Amer) 79, BUN/Creatinine Ratio 11.5, Random Glucose 120 H, Calcium 7.7 L 05/16/19 07:15: WBC 3.8 L, RBC 4.57 L, Hgb 14.8, Hct 41.9 L, MCV 91.7, MCH 32.4 H, MCHC 35.3, RDW 12.6, Plt Count 178, MPV 10.1, Immature Gran % (Auto) 0.80 H, Immature Gran # (Auto) 0.03, Neutrophils % 57.2, Lymphocytes % 29.7, Monocytes % 8.9, Eosinophils % 2.9, Basophils % 0.5, Nucleated RBC % 0.0, Neutrophils # 2.2, Lymphocytes # 1.13 L, Monocytes # 0.3, Eosinophils # 0.1, Absolute Basophils 0.0 05/16/19 07:15: Sodium 141, Plasma Sodium 141, Potassium 3.8, Chloride 105, Carbon Dioxide 27.6, Anion Gap 12.2, BUN 8, Creatinine 1.00, Est GFR (Non-Af Amer) 82, BUN/Creatinine Ratio 8.0 L, Random Glucose 103, Calcium 8.5 Discharge Location: Home Disposition: Home self-care Condition: Stable Discharge Activity: Activity as tolerated Discharge Diet: Low fat/chol, High Fiber Referrals: Bryce Montes MD [Primary Care Provider] - Additional Patient Instructions (free text): Follow up with PCP in 1 week. Tell patient to discuss with PCP about his fatty liver about statin medications. Prescriptions (Any new or edited meds): Polyethylene Glycol 3350 [Miralax] 17 gm PO DAILY #14 packet Transmission Status: Pending to [place], [place] Simethicone [Mylicon Chewable Tablets] 80 mg PO QID PRN #30 tab.chew PRN Reason: Indigestion Transmission Status: Pending to [place], [place] Complete Home Medications List: Complete Home Medication List: naproxen sodium 220 mg tablet 220 mg PO DAILY PRN tab 04/16/18 hydrocodone 10 mg-acetaminophen 325 mg tablet 1 tab PO Q6H PRN #90 tab 03/30/19 lansoprazole 30 mg capsule,delayed release 30 mg PO BID #180 cap 03/30/19 tamsulosin 0.4 mg capsule 0.4 mg PO DAILY #90 cap 03/30/19 Cyclobenzaprine HCl 10 mg PO TID PRN 05/14/19 Lisinopril [Zestril] 10 mg PO DAILY 05/14/19 Triamcinolone Acetonide [Kenalog 0.1% Cream] 1 applic TOPICAL BID PRN 05/14/19 Polyethylene Glycol 3350 [Miralax] 17 gm PO DAILY #14 packet 05/16/19 Simethicone [Mylicon Chewable Tablets] 80 mg PO QID PRN #30 tab.chew 05/16/19
[2019-05-16 15:06] VITALS: BP 121/78
== END 2019-05-16 15:00 | disposition home or self-care (01) | DRG 389 ==
LOC: MS 06:53 → ER 06:53 → MS 11:14
PROVIDERS: ADMIT Internal Medicine; ATTEND Internal Medicine
DX: K56.600 Partial intestinal obstruction, unspecified as to cause; K76.0 Fatty (change of) liver, not elsewhere classified; E66.9 Obesity, unspecified; Z87.891 Personal history of nicotine dependence; R50.9 Fever, unspecified; Z68.38 Body mass index [BMI] 38.0-38.9, adult; K30 Functional dyspepsia; K21.9 Gastro-esophageal reflux disease without esophagitis; K56.7 Ileus, unspecified; K92.1 Melena; K44.9 Diaphragmatic hernia without obstruction or gangrene; I10 Essential (primary) hypertension
CPT/HCPCS: 36415; 71010; 71045; 74019; 74020; 74177; 80048; 80053; 81001; 82150; 83690; 85014; 85018; 85025; 85652; 86140; 87040; 94660; 96361; 96365; 96367; 96375; 96376; 99285; J0131; J2405; Q9963; Q9967